=== PATIENT | male | born 1940 | race Caucasian/White ===

== ENCOUNTER 2019-03-01 10:47 | Inpatient (IN) | payer OTHER ==
[~2019-03-01] VITALS: Ht 185.4 cm; Wt 99.8 kg
[2019-03-01] MEDS ORDERED: SODIUM CHLORIDE 0.9% 500 ML IV ONE (11:15)
[2019-03-01 11:46] LABS: Basophils # (auto) 0 uL; Basophils % (auto) 0.5 % (0.0-2.0); Eosinophils # (auto) 0.1 uL; Eosinophils % (auto) 1.8 % (0.0-7.0); Hematocrit 37.2 % (41.0-53.0); Lymphocytes % (auto) 16.8 % (10.0-50.0); Mean Corpuscular Hemoglobin 28.5 pg (28.0-32.0); Mean Corpuscular Hgb Conc. 32.3 g/dL (32.0-36.0); Mean Corpuscular Volume 88.2 fL (80.0-100.0); Monocytes # (auto) 0.4 uL; Monocytes % (auto) 6.2 % (0.0-12.0); Neutrophils # (auto) 4.5 uL; Neutrophils % (auto) 74.7 % (37.0-80.0); Platelet Count (auto) 318 10^3/uL (140-450); Red Blood Cells 4.22 10^6/uL (4.5-5.90); Red Cell Distribution Width 14.3 % (11.8-14.3)
[2019-03-01 12:12] LABS: Albumin 2.9 g/dL (3.4-5.0); BUN/Creatinine Ratio 17.2; Bilirubin, Total 0.5 mg/dL (0.2-1.0); Calcium 8.5 mg/dL (8.5-10.1); Magnesium 2.2 mg/dL (1.6-2.6); Potassium 4.4 mmol/L (3.5-5.1); Total Protein 7.2 g/dL (6.4-8.2)
[2019-03-01] MEDS ORDERED: SODIUM CHLORIDE 0.9% 1,000 ML IV SCH (14:15)
[2019-03-01 17:00] VITALS: BP 158/95
--- NOTE | 2019-03-01 17:50 | NUR ---
CAME ON WC FROM ER, ALERT AND ORIENTED X4, NOT IN DISTRESS, CLEAR LS IN BILATERAL LUNG LOBES, SR R=96 ON TELE MONITOR, DENIED CH PAIN DIZZINESS OR DISCOMFORT, ABDOMEN SOFT WITH ACTIVE BS, LAST BM=02/28/19 REPORTED, SKIN INTACT WARM TO TOUCH, RESTING ON BED, VS T=97.7 RR=18 SAT=97% P=77 PN=186/84, HEAD OF BED ELEVATED, BED ON LOWER POSITION, RAILS UP X2, CALL LIGHT ON REACH, PENDING CARDIAC CONSULT AND ECHO RESULT, WILL CONTINUE MONITORING.
--- NOTE | 2019-03-01 19:00 | NUR ---
DR. SOLIS CONSULTED THE PATIENT CARDIAC CLEARED REPORTED.
[2019-03-01 20:01] VITALS: BP 158/95
--- NOTE | 2019-03-01 20:28 | NUR ---
PENDING D/C HOME TODAY, REPORT WAS GIVEN TO THE AUTOMOTIVE PARTS COUNTER PERSON RN.
--- NOTE | 2019-03-01 20:40 | NUR ---
Discharge instructions given as ordered. Encourage to follow up with PMD as instructed. All questions and concerns addressed. Patient verbalized understanding. Medication reconciliation form completed and copy given to patient. Home medications held in Pharmacy returned to patient, and needed vaccines given. IV removed with catheter intact, pressure dressing applied. Telemetry unit returned to ICU by day shift RN. Patient taken to vehicle via wheelchair with all personal belongings, accompanied by staff and family member. No distress noted at time of departure.
== END 2019-03-01 20:40 | disposition home or self-care (01) | DRG 682 ==
LOC: ER 10:56 → TELE 10:57 → TELE-WESTW 15:50
PROVIDERS: ADMIT Internal Medicine; ATTEND Internal Medicine
DX: N18.3 Chronic kidney disease, stage 3 (moderate) (principal); I21.A1 Myocardial infarction type 2; H55.00 Unspecified nystagmus; D63.1 Anemia in chronic kidney disease; J43.9 Emphysema, unspecified; N20.0 Calculus of kidney; R91.1 Solitary pulmonary nodule; F17.210 Nicotine dependence, cigarettes, uncomplicated; Z79.899 Other long term (current) drug therapy
CPT/HCPCS: 36415; 70450; 76775; 80053; 83735; 84484; 85025; 93005; 93306; 94761; 96360; G0378

== ENCOUNTER 2019-05-26 06:58 | Emergency (ER) | payer OTHER ==
[~2019-05-26] VITALS: Ht 185.4 cm; Wt 99.8 kg
[2019-05-26] MEDS ORDERED: SODIUM CHLORIDE 0.9% 1,000 ML IV ONE (07:47)
[2019-05-26 08:09] LABS: Urine Bacteria FEW /hpf (None Seen); Urine Blood 3+ /uL (Negative); Urine Mucus FEW (None Seen); Urine Specific Gravity 1.014 (1.001-1.035); Urine WBC 245 /hpf (0 - 3); Urine WBC Clumps PRESENT /hpf (None Seen)
[2019-05-26 08:20] LABS: Basophils # (auto) 0 uL; Basophils % (auto) 0.5 % (0.0-2.0); Eosinophils # (auto) 0.1 uL; Eosinophils % (auto) 1.1 % (0.0-7.0); Hematocrit 39.2 % (41.0-53.0); Lymphocytes # (auto) 1.1 uL; Lymphocytes % (auto) 13.5 % (10.0-50.0); Mean Corpuscular Hemoglobin 27.6 pg (28.0-32.0); Mean Corpuscular Hgb Conc. 33.1 g/dL (32.0-36.0); Mean Corpuscular Volume 83.5 fL (80.0-100.0); Monocytes # (auto) 0.6 uL; Monocytes % (auto) 7.5 % (0.0-12.0); Neutrophils # (auto) 6.1 uL; Neutrophils % (auto) 77.4 % (37.0-80.0); Nucleated Red Blood Cells % 0.2 %; Platelet Count (auto) 319 10^3/uL (140-450); Red Blood Cells 4.69 10^6/uL (4.5-5.90); Red Cell Distribution Width 15.1 % (11.8-14.3); White Blood Cell 7.9 10^3/uL (4.4-10.8)
[2019-05-26 08:44] LABS: BUN/Creatinine Ratio 15.7; Calcium 8.9 mg/dL (8.5-10.1); Magnesium 2.3 mg/dL (1.6-2.6); Potassium 4.7 mmol/L (3.5-5.1)
[2019-05-26 09:42] VITALS: BP 141/66
[2019-05-26] MEDS ORDERED: cefTRIAXone 1GM/50ML D5W 50 ML IV ONE (10:00)
[2019-05-26] MEDS ORDERED: cefTRIAXone SOD 1,000 MG VL IM ONE (10:15)
== END 2019-05-26 11:00 | disposition home or self-care (01) ==
LOC: ER 06:58
DX: N39.0 Urinary tract infection, site not specified (principal); I12.9 Hypertensive chronic kidney disease with stage 1 through stage 4 chronic kidney disease, or unspecified chronic kidney disease; N18.3 Chronic kidney disease, stage 3 (moderate)
CPT/HCPCS: 36415; 51702; 80048; 81001; 83735; 85025; 96372; 99284; J0696; J7030

== ENCOUNTER 2019-07-13 22:51 | Emergency (ER) | payer OTHER ==
[~2019-07-13] VITALS: Ht 185.4 cm; Wt 103.9 kg
[2019-07-14 00:08] LABS: Basophils # (auto) 0.1 10 ^3/uL (0-0.2); Basophils % (auto) 0.8 % (0.0-2.0); Eosinophils # (auto) 0.3 10 ^3/uL (0-0.8); Eosinophils % (auto) 4.1 % (0.0-7.0); Hematocrit 35.4 % (41.0-53.0); Hemoglobin 12.1 g/dL (13.5-17.5); Lymphocytes # (auto) 1.6 10 ^3/uL (0.4-5.4); Lymphocytes % (auto) 22.7 % (10.0-50.0); Mean Corpuscular Hemoglobin 27.9 pg (28.0-32.0); Mean Corpuscular Volume 82.1 fL (80.0-100.0); Monocytes # (auto) 0.6 10 ^3/uL (0-1.3); Monocytes % (auto) 8.4 % (0.0-12.0); Neutrophils # (auto) 4.5 10 ^3/uL (1.6-8.6); Platelet Count (auto) 308 10^3/uL (140-450); Red Blood Cells 4.32 10^6/uL (4.5-5.90); Red Cell Distribution Width 15.4 % (11.8-14.3)
[2019-07-14 00:26] LABS: Albumin 3.1 g/dL (3.4-5.0); BUN/Creatinine Ratio 16.9; Calcium 8.6 mg/dL (8.5-10.1); Potassium 4.4 mmol/L (3.5-5.1)
[2019-07-14 00:29] LABS: Bilirubin, Total 0.5 mg/dL (0.2-1.0); Total Protein 7.7 g/dL (6.4-8.2)
[2019-07-14 00:30] VITALS: BP 120/79
== END 2019-07-14 02:01 | disposition home or self-care (01) ==
LOC: ER 22:51
DX: R33.8 Other retention of urine (principal); F17.210 Nicotine dependence, cigarettes, uncomplicated; Z98.890 Other specified postprocedural states
CPT/HCPCS: 36415; 51702; 80053; 85025

== ENCOUNTER 2019-12-27 14:26 | Inpatient (IN) | payer OTHER ==
[~2019-12-27] VITALS: Ht 185.4 cm; Wt 95.3 kg
[2019-12-27 15:52] LABS: Basophils # (auto) 0.1 10 ^3/uL (0-0.2); Basophils % (auto) 0.9 % (0.0-2.0); Lymphocytes # (auto) 1.3 10 ^3/uL (0.4-5.4); Monocytes # (auto) 0.6 10 ^3/uL (0-1.3)
[2019-12-27 15:54] LABS: Eosinophils # (auto) 0.3 10 ^3/uL (0-0.8); Eosinophils % (auto) 4.3 % (0.0-7.0); Hematocrit 21.2 % (41.0-53.0); Lymphocytes % (auto) 20.3 % (10.0-50.0); Mean Corpuscular Hgb Conc. 32.1 g/dL (32.0-36.0); Mean Corpuscular Volume 71.7 fL (80.0-100.0); Monocytes % (auto) 9.6 % (0.0-12.0); Neutrophils # (auto) 4.2 10 ^3/uL (1.6-8.6); Neutrophils % (auto) 64.9 % (37.0-80.0); Platelet Count (auto) 588 10^3/uL (140-450); Red Blood Cells 2.96 10^6/uL (4.5-5.90); Red Cell Distribution Width 19.1 % (11.8-14.3); White Blood Cell 6.4 10^3/uL (4.4-10.8)
[2019-12-27 16:02] LABS: Albumin 2.5 g/dL (3.4-5.0); Calcium 8.7 mg/dL (8.5-10.1); Potassium 3.9 mmol/L (3.5-5.1)
[2019-12-27 16:05] LABS: BUN/Creatinine Ratio 13.6; Bilirubin, Total 0.5 mg/dL (0.2-1.0); Total Protein 7.6 g/dL (6.4-8.2)
[2019-12-27 16:25] LABS: Hemoglobin 6.8 g/dL (13.5-17.5)
[2019-12-27] MEDS: SODIUM CHLORIDE 0.9% 1,000 ML IV SCH (17:06)
[2019-12-27] MEDS ORDERED: HYDROcodone-ACET 5/325MG TAB PO PRN (17:15)
[2019-12-27] MEDS ORDERED: MORPHINE SULF INJ 2 MG/ML SYRINGE 1ML IV PRN ×2 (17:15)
[2019-12-27] MEDS ORDERED: DOCUSATE SOD 100 MG CAP PO PRN (17:15)
[2019-12-27] MEDS ORDERED: ALUM & MAG HYDROX-SIMETH LIQ(MAALOX) 30 ML PO PRN (17:15)
[2019-12-27] MEDS ORDERED: ACETAMINOPHEN 325 MG TAB PO PRN (17:15)
[2019-12-27] MEDS ORDERED: ONDANSETRON HCL 4 MG/2 ML VIAL IV PRN (17:15)
[2019-12-27] MEDS ORDERED: LORazepam 0.5 MG TAB PO PRN (17:15)
[2019-12-27] MEDS ORDERED: NITROGLYCERIN 0.4 MG SL TAB SL PRN (17:15)
[2019-12-27 18:53] LABS: Alcohol, Urine < 3.0 mg/dL (0-10); Amphetamine Screen, Urine NEGATIVE (NEGATIVE); Barbiturate Scree,Urine NEGATIVE (NEGATIVE); Benzodiazephine Screen, Urine NEGATIVE (NEGATIVE); Cannabinoid Screen, Urine NEGATIVE (NEGATIVE); Cocaine Screen, Urine NEGATIVE (NEGATIVE); Opiate Scree,Urine NEGATIVE (NEGATIVE); Phencyclidine Screen, Urine NEGATIVE (NEGATIVE)
[2019-12-27 19:22] LABS: Urine Bacteria NONE SEEN /hpf (None Seen); Urine Blood Negative /uL (Negative); Urine Hyaline Cast FEW /lpf (0 - 2); Urine Mucus FEW (None Seen); Urine Specific Gravity 1.025 (1.001-1.035); Urine WBC 12 /hpf (0 - 3)
[2019-12-27] MEDS ORDERED: SODIUM FERR GLUC 62.5MG/5ML 125 MG in SODIUM CHL 0.9% 100 ML IV ONE (20:30)
[2019-12-27 20:42] LABS: % Iron Saturation 8.9 % (20-55)
[2019-12-27] MEDS ORDERED: ATORVASTATIN 20 MG TAB PO SCH (22:00)
[2019-12-27] MEDS: AZTREONAM 1GM INJ 1 GM in D5W 5% 50 ML IV SCH (23:10)
[2019-12-28] VITALS (15 sets, daily range): BP systolic 108–150; BP diastolic 63–89
[2019-12-28] MEDS: AZTREONAM 1GM INJ 1 GM in D5W 5% 50 ML IV SCH ×2 (05:47→14:00)
[2019-12-28 08:13] LABS: Eosinophils # (auto) 0.3 10 ^3/uL (0-0.8); Monocytes # (auto) 0.6 10 ^3/uL (0-1.3); White Blood Cell 5.3 10^3/uL (4.4-10.8)
[2019-12-28 08:14] LABS: Basophils # (auto) 0 10 ^3/uL (0-0.2); Basophils % (auto) 0.8 % (0.0-2.0); Eosinophils % (auto) 5.2 % (0.0-7.0); Hematocrit 22.4 % (41.0-53.0); Hemoglobin 7.2 g/dL (13.5-17.5); Lymphocytes % (auto) 18.2 % (10.0-50.0); Mean Corpuscular Hemoglobin 23.7 pg (28.0-32.0); Monocytes % (auto) 11.8 % (0.0-12.0); Neutrophils # (auto) 3.4 10 ^3/uL (1.6-8.6); Platelet Count (auto) 467 10^3/uL (140-450); Red Blood Cells 3.02 10^6/uL (4.5-5.90)
[2019-12-28 08:16] LABS: Red Cell Distribution Width 20.3 % (11.8-14.3)
[2019-12-28 08:29] LABS: Calcium 8.4 mg/dL (8.5-10.1); INR 1.23 (0.9-1.15); Partial Thromboplastin Time 31.9 sec (23.0-31.2)
[2019-12-28 08:35] LABS: Albumin 2.3 g/dL (3.4-5.0); BUN/Creatinine Ratio 14.3; Bilirubin, Total 0.8 mg/dL (0.2-1.0); Magnesium 2.3 mg/dL (1.6-2.6); Total Protein 6.9 g/dL (6.4-8.2)
[2019-12-28] MEDS: SODIUM CHLORIDE 0.9% 1,000 ML IV SCH (09:55)
[2019-12-28] MEDS ORDERED: FINASTERIDE 5 MG TAB PO SCH (10:00)
--- NOTE | 2019-12-28 10:40 | NUR ---
PATIENT ARRIVED TO PACU VIA WHEELCHAIR, AMBULATED TO [facility] WITHOUT INCIDENT. BEDSIDE REPORT RECEIVED FROM ER STONEWORKING BELT SANDER. PATIENT IS ALERT AND APPROPRIATE. PATIENT ORIENTATED TO SURROUNDINGS, TELEMETRY BEING MONITORED AT THE BEDSIDE. WILL CONTINUE TO MONITOR.
[2019-12-28] MEDS ORDERED: IRON SUCROSE COMPLEX 200 MG in SODIUM CHL 0.9% 100 ML IV SCH (12:00)
--- NOTE | 2019-12-28 12:39 | NUR ---
TWO #2 IV'S PLACED AT THIS TIME, ONE LEFT HAND AND ONE IN THE RIGHT HAND IN PREPARATION FOR STRESS TEST.
--- NOTE | 2019-12-28 12:43 | NUR ---
DR. BACH AT THE BEDSIDE IN PACU, NEW ORDERS RECEIVED. TRANSFUSION TO BE COMPLETED AFTER STRESS TEST.
--- NOTE | 2019-12-28 13:05 | NUR ---
PATIENT TO STRESS LAB
--- NOTE | 2019-12-28 13:35 | NUR ---
PATIENT RETURNED FROM STRESS LAB
[2019-12-28] MEDS ORDERED: ADENOSINE 80 MG in GIVE UN-DILUTED 0 ML IV STA (13:54)
--- NOTE | 2019-12-28 14:16 | NUR ---
STRESS TEST STAFF TO PACU, PATIENT RETURNED TO STRESS LAB.
[2019-12-28] MEDS ORDERED: CIPR-173 PO (14:46)
--- NOTE | 2019-12-28 14:49 | NUR ---
PATIENT RETURNED FROM STRESS LAB, NO INCIDENTS TO REPORT.
[2019-12-28] MEDS ORDERED: HYDR-4833 PO (15:42)
--- NOTE | 2019-12-28 15:50 | NUR ---
DR. BACH UPDATED WITH BLOOD TRANSFUSION STATUS, S/P ECHO, SHIPPING ASSISTANT HAS NOT SEEN PATIENT AT THIS TIME AND DR. BACH IS AWARE AND WILL COMPLETE THIS SOON POSSIBLE, PATIENT TO BE DISCHARGED ORDERED. PATIENT IS AWARE AND WANTS TO GO HOME TONIGHT WELL.
--- NOTE | 2019-12-28 16:02 | NUR ---
REPORT PROVIDED IN DETAIL TO ELSA HARRISON ALL CONCERNS AND QUESTIONS ADDRESSED.
--- NOTE | 2019-12-28 16:30 | NUR ---
Telemetry admit from PACU RANDI GALARZA admitted to Telemetry unit after SBAR received. Patient oriented to ELSA NICHOLSON, primary RN, unit, room, bed, and unit policies regarding patient care and visiting hours. Patient now on continuous telemetry monitoring, tele box # 47 and telemetry reading on arrival to unit is [hr 80]. Patient is alert and awake with even and unlabored respirations. no S/S of distress/sob or distress. bed is in lowest locked position, side rails up x2 and call light is within reach. Last unit of PRBC's currently running. unit started at 1618 by CONTENT ADMINISTRATOR. Patient tolerating well, no S/S of transfusion reaction present at this time. Pt educate on S/S and informed to call immediately if these S/S become present. Pt verbalized understanding. All questions and concerns addressed. Will continue to monitor q1h and PRN.
--- NOTE | 2019-12-28 16:36 | NUR ---
PATIENT TRANSPORTED TO ROOM 220A AND AMBULATED TO THE BED FROM THE [facility] WITHOUT INCIDENT. BAG AND SHOES WITH PATIENT ELSA RN TO THE BEDSIDE. REPORT UPDATED. BED LOW, CALL ROMAN WITHIN REACH.
--- NOTE | 2019-12-28 17:30 | NUR ---
SPOKE WITH DR. BACH SPOKE WITH DR. BACH OVER THE PHONE. OER DR. HASTINGS NEEDS TO HAVE KIDNEY U/ DONE BEFORE D/C AND TO CALL HIM WITH RESULTS PRIOR TO D/C. D/C MAY BE HELD DEPENDING ON RESULTS OF U/S. WILL CONTINUE TO MONITOR Q1H AND PRN.
[2019-12-28] MEDS ORDERED: TAMSULOSIN HYDROCHLORIDE 0.4 MG CAP PO SCH (18:00)
--- NOTE | 2019-12-28 19:12 | NUR ---
BLOOD TRANSFUSION ENDED BLOOD TRANSFUSION COMPLETE AND DONE INFUSING. PT TOLERATED WELL. DO S/S OF SOB/DISTRESS OR PAIN. PT DENIES ANY TRANSFUSION RELATED S/S. VSS. WILL CONTINUE TO MONITOR
--- NOTE | 2019-12-28 19:27 | NUR ---
PT WANTING TO LEAVE PT EXPRESSING THAT HE DOESN'T WANT TO WAIT HERE ANYMORE AND HE IS READY TO GO HOME. ATTEMPTED TO CALL DR. BACH. SPOKE WITH DR. AKHTAR, WHO IS COVERING FOR DR. BACH. UPDATE ON PT STATUS AND PT NOT WANTING TO WAIT FOR TEST RESULTS TO COME BACK. PER DR. SCHNEIDER TO LET PT LEAVE AMA AND HE WILL INFORM DR. BACH KNOW. WILL INFORM NOC CHRISTY.
--- NOTE | 2019-12-28 19:40 | NUR ---
Closing Note Patient awake and alert. Patient requesting to go AMA as he is not wanting to wait for u/s results. No S/S of distress/SOB. AMA endorsed. Care endorsed to Myah GAGE RN. Addendum: 12/28/19 at 1958 by ELSA NICHOLSON RN pt AMRickey now
--- NOTE | 2019-12-28 19:57 | NUR ---
AMA Note RANDI GALARZA states they want to leave the hospital Against Medical Advice (AMA). Patient encouraged to stay for further treatment/stabilization. VICKY MCCARTNEY MD notified of patient's wishes. Tele monitor removed and returned to telemetry techs. Patient advised of the risks and benefits of leaving AMA. Patient verbalized understanding. Patient encouraged to return to the ER if symptoms do not improve or worsen. pt walked out with walker with slow steady gait. no S/S of distress/sob or pain at time of AMA.
--- NOTE | 2019-12-29 09:15 | NUR ---
ss consult Per ss consult home health and front wheel walker. Patient left AMA prior to being assessed. Patient informed me via telephone that he has a fww and he does not need home health. Patient refused ss consult. Addendum: 12/30/19 at 1123 by Luma Bishop Amended: Links added.
== END 2019-12-28 19:50 | disposition left against medical advice (07) | DRG 682 ==
LOC: ER 14:26 → TELE 14:27 → TELE-CENTR 12-28 16:27
PROVIDERS: ADMIT Hospitalist; ATTEND Hospitalist
PROC: 30233N1 Transfusion of Nonautologous Red Blood Cells into Peripheral Vein, Percutaneous Approach (ICD-10-PCS; principal; 2019-12-28)
DX: N18.3 Chronic kidney disease, stage 3 (moderate) (principal); E43 Unspecified severe protein-calorie malnutrition; E87.1 Hypo-osmolality and hyponatremia; D63.8 Anemia in other chronic diseases classified elsewhere; N13.6 Pyonephrosis; N17.9 Acute kidney failure, unspecified; N28.89 Other specified disorders of kidney and ureter; K80.20 Calculus of gallbladder without cholecystitis without obstruction; N20.9 Urinary calculus, unspecified; Z53.29 Procedure and treatment not carried out because of patient's decision for other reasons; Z88.0 Allergy status to penicillin; E78.5 Hyperlipidemia, unspecified; G89.29 Other chronic pain; I49.3 Ventricular premature depolarization; J44.9 Chronic obstructive pulmonary disease, unspecified; N28.1 Cyst of kidney, acquired; N40.0 Benign prostatic hyperplasia without lower urinary tract symptoms; Z80.9 Family history of malignant neoplasm, unspecified; Z82.49 Family history of ischemic heart disease and other diseases of the circulatory system; Z83.3 Family history of diabetes mellitus; Z85.51 Personal history of malignant neoplasm of bladder; Z87.442 Personal history of urinary calculi; Z87.891 Personal history of nicotine dependence
CPT/HCPCS: 36415; 74176; 76775; 78452; 80053; 80061; 80307; 81001; 82150; 83036; 83540; 83550; 83690; 83735; 84100; 84484; 85025; 85610; 85730; 86850; 86900; 86901; 86920; 87040; 87086; 93005; 93017; 93306; G0378; J0153; J1756; J7060

== ENCOUNTER 2020-01-18 08:17 | Inpatient (IN) | payer OTHER ==
[~2020-01-18] VITALS: Ht 185.4 cm; Wt 98.5 kg
[~2020-01-18 08:17] MED LIST: CIPR-173 PO; HYDR-4833 PO
[2020-01-18 09:08] LABS: Basophils # (auto) 0 10 ^3/uL (0-0.2); Basophils % (auto) 0.7 % (0.0-2.0); Eosinophils # (auto) 0.1 10 ^3/uL (0-0.8); Eosinophils % (auto) 2.4 % (0.0-7.0); Hemoglobin 7.8 g/dL (13.5-17.5); Lymphocytes # (auto) 0.9 10 ^3/uL (0.4-5.4); Lymphocytes % (auto) 13.9 % (10.0-50.0); Mean Corpuscular Hemoglobin 23.5 pg (28.0-32.0); Mean Corpuscular Hgb Conc. 31.4 g/dL (32.0-36.0); Mean Corpuscular Volume 74.9 fL (80.0-100.0); Monocytes # (auto) 0.7 10 ^3/uL (0-1.3); Monocytes % (auto) 11.3 % (0.0-12.0); Neutrophils # (auto) 4.5 10 ^3/uL (1.6-8.6); Neutrophils % (auto) 71.7 % (37.0-80.0); Platelet Count (auto) 596 10^3/uL (140-450); Red Blood Cells 3.33 10^6/uL (4.5-5.90); Red Cell Distribution Width 22.4 % (11.8-14.3); White Blood Cell 6.2 10^3/uL (4.4-10.8)
[2020-01-18] MEDS ORDERED: DexAMETHasone INJECTION 10 MG in D5W 5% 50 ML IV ONE (09:15)
[2020-01-18] MEDS ORDERED: IPRATROPIUM BROM 0.5 MG/2.5ML INH SOL NEB ONE (09:15)
[2020-01-18] MEDS ORDERED: ALBUTEROL SULF 2.5 MG/0.5ML(0.5%) NEB SOLN NEB ONE (09:15)
[2020-01-18 09:27] LABS: Albumin 2.7 g/dL (3.4-5.0); Calcium 8.7 mg/dL (8.5-10.1); Potassium 4.5 mmol/L (3.5-5.1)
[2020-01-18 09:33] LABS: BUN/Creatinine Ratio 13.3; Bilirubin, Total 0.5 mg/dL (0.2-1.0); Magnesium 2.5 mg/dL (1.6-2.6); Total Protein 7.6 g/dL (6.4-8.2)
[2020-01-18] MEDS: DexAMETHasone INJECTION 10 MG in D5W 5% 50 ML IV SCH (11:54)
[2020-01-18 13:00] VITALS: BP 135/70
[2020-01-18] MEDS ORDERED: ACETAMINOPHEN 325 MG TAB PO PRN (14:00)
[2020-01-18] MEDS ORDERED: MORPHINE SULF INJ 2 MG/ML SYRINGE 1ML IV PRN ×2 (14:00)
[2020-01-18] MEDS ORDERED: NITROGLYCERIN 0.4 MG SL TAB SL PRN (14:00)
[2020-01-18] MEDS ORDERED: ONDANSETRON HCL 4 MG/2 ML VIAL IV PRN (14:00)
[2020-01-18] MEDS: SOD CHL 0.45% 1,000 ML IV SCH (14:54)
--- NOTE | 2020-01-18 15:54 | NUR ---
Telemetry admit from ER RANDI GALARZA admitted to Telemetry unit after SBAR received. Patient oriented to Caitlin blair RN, unit, room, bed, and unit policies regarding patient care and visiting hours. Patient now on continuous telemetry monitoring, tele box #25 and telemetry reading on arrival to unit is ST 107 bpm. Patient placed on bedside oxygen 2 LPM NC and weighed by bed scale. Patient has Escamilla catheter in place. Catheter is patent draining into a leg bag. Patient demonstrated proper technique for draining catheter bag. patient requesting to continue emptying catheter bag. Instructed patient on POC, fall precautions and to call for assistance as needed. patient verbalized understanding. Fall precautions in place with call light within reach.
--- NOTE | 2020-01-18 16:00 | NUR ---
Patient transferred self from wheelchair to bed Patient ambulated with a steady gait. No distress noted.
[2020-01-18] MEDS ORDERED: DOCU-80 PO (16:35)
[2020-01-18] MEDS ORDERED: CRAN450T4 PO (16:35)
[2020-01-18] MEDS ORDERED: POM (16:35)
[2020-01-18] MEDS ORDERED: MISC450C OR (16:35)
--- NOTE | 2020-01-18 16:45 | NUR ---
MRSA swab collected & sent to lab per protocol.
[2020-01-18 17:00] VITALS: BP 135/70
--- NOTE | 2020-01-18 18:45 | NUR ---
Closing note Patient resting in bed with even and unlabored respirations, no distress noted. Fall precautions in place with call light within reach.
--- NOTE | 2020-01-18 19:15 | NUR ---
Care endorsed to HCRISTY Duran.
--- NOTE | 2020-01-18 19:45 | NUR ---
Opening Shift Note Assumed care of patient, awake and alert. No S/S of distress/SOB or pain. Patient on 2L NC. Instructed on POC and to call for assist PRN, will continue to monitor for changes Q1hr and PRN.
[2020-01-18 20:00] VITALS: BP 124/69
[2020-01-18 21:00] VITALS: BP 124/69
[2020-01-18] MEDS ORDERED: TEMAZEPAM 15 MG CAP PO ONE (22:45)
[2020-01-19] MEDS: SOD CHL 0.45% 1,000 ML IV SCH (04:12)
[2020-01-19 05:00] VITALS: BP 121/66
[2020-01-19 07:03] LABS: Basophils # (auto) 0 10 ^3/uL (0-0.2); Basophils % (auto) 0.1 % (0.0-2.0); Eosinophils # (auto) 0 10 ^3/uL (0-0.8); Hemoglobin 7.2 g/dL (13.5-17.5); Monocytes # (auto) 0.5 10 ^3/uL (0-1.3); Neutrophils # (auto) 8.2 10 ^3/uL (1.6-8.6); White Blood Cell 9.3 10^3/uL (4.4-10.8)
[2020-01-19 07:05] LABS: Hematocrit 22.5 % (41.0-53.0); Lymphocytes # (auto) 0.6 10 ^3/uL (0.4-5.4); Lymphocytes % (auto) 6.2 % (10.0-50.0); Mean Corpuscular Hemoglobin 23.7 pg (28.0-32.0); Mean Corpuscular Hgb Conc. 32.2 g/dL (32.0-36.0); Mean Corpuscular Volume 73.7 fL (80.0-100.0); Monocytes % (auto) 5.3 % (0.0-12.0); Neutrophils % (auto) 88.4 % (37.0-80.0); Platelet Count (auto) 518 10^3/uL (140-450); Red Blood Cells 3.06 10^6/uL (4.5-5.90); Red Cell Distribution Width 22.2 % (11.8-14.3)
[2020-01-19 07:15] LABS: Albumin 2.4 g/dL (3.4-5.0); Calcium 8.6 mg/dL (8.5-10.1); Magnesium 2.9 mg/dL (1.6-2.6); Potassium 4.8 mmol/L (3.5-5.1)
[2020-01-19 07:34] LABS: BUN/Creatinine Ratio 18.4; Bilirubin, Total 0.4 mg/dL (0.2-1.0)
[2020-01-19 07:37] LABS: INR 1.23 (0.9-1.15); Partial Thromboplastin Time 29.9 sec (23.0-31.2)
[2020-01-19 08:42] VITALS: BP 123/68
--- NOTE | 2020-01-19 08:54 | NUR ---
Opening Shift Note Assumed care of patient, A/Ox4. Patient sitting in high-collado's position upon entering the room. Patient's IV dressing was saturated with blood and a new dressing was applied as well as hooked up and restarted at 70 ml/hr. Patient is able to ambulate to the restroom to empty leg bag independently and does so when needed. No S/S of distress/SOB or pain. Instructed on POC for the day and to call for assist PRN, will continue to monitor for changes Q1hr and PRN.
--- NOTE | 2020-01-19 10:30 | NUR ---
Dr. Hoffman at bedside Dr Hoffman at bedside assessing patient's feelings of SOB and oxygen saturations. Patient instructed to walk the unit then reassess saturations. Patient ambulated around the nurses station returning to his bed with saturations measuring at 97%. Patient was instructed by the physician to maintain follow up appointments and was told he would be discharged today. Patient verbalized understanding. Will continue to monitor the patient and carry out discharge orders.
[2020-01-19] MEDS: DexAMETHasone INJECTION 10 MG in D5W 5% 50 ML IV SCH (10:48)
--- NOTE | 2020-01-19 12:05 | NUR ---
Patient discharged off floor Patient was given verbal and written education on diagnosis, prevention, diet and follow up appointment information. Patient verbalized understanding. IV was removed and a bandage was applied with coban. No signs of trauma or bleeding at the IV site. Patient was wheeled off the unit accompanied by staff and taken to the front of the hospital. Patient was received by his girlfriend. No signs of respiratory distress or pain was noted at discharge.
[2020-01-19 12:11] VITALS: BP 120/70
--- NOTE | 2020-01-19 12:45 | NUR ---
Patient was discharge prior to assess. Regarding social service consult for home health safety evaluation. Faxed clinical information to [facility]. Per Kristine with [facility] patient has been accepted and service to start within 24-48hrs upon d/c day.
== END 2020-01-19 12:11 | disposition home health service (06) | DRG 725 ==
LOC: ER 08:17 → TELE 08:18 → TELE-CENTR 15:54
PROVIDERS: ADMIT Internal Medicine; ATTEND Internal Medicine
DX: N40.1 Benign prostatic hyperplasia with lower urinary tract symptoms (principal); N17.0 Acute kidney failure with tubular necrosis; N13.30 Unspecified hydronephrosis; E87.1 Hypo-osmolality and hyponatremia; R33.8 Other retention of urine; N28.89 Other specified disorders of kidney and ureter; D64.9 Anemia, unspecified; N18.9 Chronic kidney disease, unspecified; K57.30 Diverticulosis of large intestine without perforation or abscess without bleeding; K80.20 Calculus of gallbladder without cholecystitis without obstruction; J44.9 Chronic obstructive pulmonary disease, unspecified; Z88.0 Allergy status to penicillin; Z87.891 Personal history of nicotine dependence; Z90.89 Acquired absence of other organs; Z83.3 Family history of diabetes mellitus; Z82.49 Family history of ischemic heart disease and other diseases of the circulatory system; Z80.9 Family history of malignant neoplasm, unspecified; Z85.51 Personal history of malignant neoplasm of bladder
CPT/HCPCS: 36415; 71045; 74176; 80053; 82150; 83690; 83735; 85025; 85610; 85730; 87081; 93005; 94640; G0378; J1100; J7060

== ENCOUNTER 2020-03-10 12:01 | Emergency (ER) | payer OTHER ==
[~2020-03-10] VITALS: Ht 185.4 cm; Wt 86.2 kg
[~2020-03-10 12:01] MED LIST changes: +CRAN450T4 PO; +DOCU-80 PO; +MISC450C OR; +POM
[2020-03-10 12:38] VITALS: BP 129/69
[2020-03-10 13:52] LABS: Urine Bacteria NONE SEEN /hpf (None Seen); Urine Blood 1+ /uL (Negative); Urine Specific Gravity 1.016 (1.001-1.035); Urine WBC 12 /hpf (0 - 3)
== END 2020-03-10 14:54 | disposition home or self-care (01) ==
LOC: ER 12:01
DX: N39.0 Urinary tract infection, site not specified (principal); N40.0 Benign prostatic hyperplasia without lower urinary tract symptoms; J44.9 Chronic obstructive pulmonary disease, unspecified; E78.5 Hyperlipidemia, unspecified; I10 Essential (primary) hypertension; Z46.6 Encounter for fitting and adjustment of urinary device; Z88.0 Allergy status to penicillin; Z88.8 Allergy status to other drugs, medicaments and biological substances; Z79.899 Other long term (current) drug therapy; Z98.890 Other specified postprocedural states; Z90.89 Acquired absence of other organs; Z87.891 Personal history of nicotine dependence
CPT/HCPCS: 51702; 81001

== ENCOUNTER 2020-03-29 06:36 | Emergency (ER) | payer OTHER ==
[~2020-03-29] VITALS: Ht 185.4 cm; Wt 87.5 kg
[2020-03-29 07:55] LABS: Hematocrit 24.5 % (41.0-53.0); Hemoglobin 7.6 g/dL (13.5-17.5); Lymphocytes # (auto) 0.9 10 ^3/uL (0.4-5.4); Monocytes # (auto) 0.5 10 ^3/uL (0-1.3); Red Blood Cells 3.38 10^6/uL (4.5-5.90); White Blood Cell 5.3 10^3/uL (4.4-10.8)
[2020-03-29 07:57] LABS: Basophils # (auto) 0 10 ^3/uL (0-0.2); Basophils % (auto) 0.9 % (0.0-2.0); Eosinophils # (auto) 0.1 10 ^3/uL (0-0.8); Eosinophils % (auto) 2.6 % (0.0-7.0); Lymphocytes % (auto) 16.3 % (10.0-50.0); Mean Corpuscular Hemoglobin 22.4 pg (28.0-32.0); Mean Corpuscular Volume 72.4 fL (80.0-100.0); Monocytes % (auto) 9.7 % (0.0-12.0); Neutrophils # (auto) 3.8 10 ^3/uL (1.6-8.6); Neutrophils % (auto) 70.5 % (37.0-80.0); Platelet Count (auto) 473 10^3/uL (140-450)
[2020-03-29 08:04] LABS: Urine Bacteria None Seen /hpf (None Seen); Urine WBC None Seen /hpf (0 - 3)
[2020-03-29 08:16] LABS: Albumin 2.9 g/dL (3.4-5.0); Potassium 3.7 mmol/L (3.5-5.1)
[2020-03-29 08:19] LABS: BUN/Creatinine Ratio 17.7; Bilirubin, Total 0.5 mg/dL (0.2-1.0); Total Protein 7.3 g/dL (6.4-8.2)
[2020-03-29 08:54] LABS: Urine Specific Gravity 1.016 (1.001-1.035)
[2020-03-29 08:55] LABS: Urine Blood 2+ /uL (Negative)
[2020-03-29 09:39] VITALS: BP 113/60
== END 2020-03-29 09:49 | disposition home or self-care (01) ==
LOC: ER 06:36
DX: R33.9 Retention of urine, unspecified (principal); D64.9 Anemia, unspecified; J44.9 Chronic obstructive pulmonary disease, unspecified; E78.00 Pure hypercholesterolemia, unspecified; E78.5 Hyperlipidemia, unspecified; I10 Essential (primary) hypertension; Z85.528 Personal history of other malignant neoplasm of kidney; Z87.891 Personal history of nicotine dependence; Z79.899 Other long term (current) drug therapy; Z88.0 Allergy status to penicillin; Z88.8 Allergy status to other drugs, medicaments and biological substances
CPT/HCPCS: 36415; 51702; 80053; 81001; 85025

== ENCOUNTER 2020-03-29 14:37 | Emergency (ER) | payer OTHER ==
[~2020-03-29] VITALS: Ht 185.4 cm; Wt 87.5 kg
[2020-03-29 14:46] VITALS: BP 117/75
== END 2020-03-29 17:39 | disposition home or self-care (01) ==
LOC: ER 14:37
DX: Z46.6 Encounter for fitting and adjustment of urinary device (principal); I10 Essential (primary) hypertension; J44.9 Chronic obstructive pulmonary disease, unspecified; E78.5 Hyperlipidemia, unspecified; Z90.89 Acquired absence of other organs; Z88.0 Allergy status to penicillin; Z88.8 Allergy status to other drugs, medicaments and biological substances; Z87.891 Personal history of nicotine dependence
CPT/HCPCS: 51702

== ENCOUNTER → 2020-05-12 | Emergency (ER) | payer OTHER ==
[~2020-05-12] VITALS: Ht 185.4 cm; Wt 77.1 kg
[2020-05-12 17:25] VITALS: BP 144/75
== END | disposition left against medical advice (07) ==
LOC: ER 17:19
DX: R39.89 Other symptoms and signs involving the genitourinary system (principal); Z53.21 Procedure and treatment not carried out due to patient leaving prior to being seen by health care provider

== ENCOUNTER 2020-05-14 05:22 | Emergency (ER) | payer OTHER ==
[~2020-05-14] VITALS: Ht 185.4 cm; Wt 77.6 kg
[2020-05-14 12:33] LABS: Urine Bacteria FEW /hpf (None Seen); Urine Blood 3+ /uL (Negative); Urine Budding Yeast MODERATE /hpf (None Seen); Urine Hyaline Cast FEW /lpf (0 - 2); Urine Mucus FEW (None Seen); Urine Specific Gravity 1.021 (1.001-1.035); Urine WBC 372 /hpf (0 - 3); Urine WBC Clumps PRESENT /hpf (None Seen)
[2020-05-14 14:41] VITALS: BP 103/71
== END 2020-05-14 14:42 | disposition home or self-care (01) ==
LOC: ER 05:22
DX: N39.0 Urinary tract infection, site not specified (principal); J44.9 Chronic obstructive pulmonary disease, unspecified; E78.5 Hyperlipidemia, unspecified; I10 Essential (primary) hypertension; Z87.891 Personal history of nicotine dependence; Z46.6 Encounter for fitting and adjustment of urinary device
CPT/HCPCS: 51702; 81001; 87086

== ENCOUNTER 2020-08-16 14:46 | Emergency (ER) | payer OTHER ==
[~2020-08-16] VITALS: Ht 185.4 cm; Wt 88.5 kg
[2020-08-16 15:00] VITALS: BP 90/60
== END 2020-08-16 15:35 | disposition home or self-care (01) ==
LOC: ER 14:46
DX: R31.9 Hematuria, unspecified (principal); Z53.21 Procedure and treatment not carried out due to patient leaving prior to being seen by health care provider

== ENCOUNTER 2020-08-22 18:00 | Inpatient (IN) | payer OTHER ==
[~2020-08-22] VITALS: Ht 185.4 cm; Wt 88.9 kg
[2020-08-22] MEDS ORDERED: IOHEXOL 350 MG/ML 100ML IJ ONE (19:17)
[2020-08-22 19:33] LABS: Basophils # (auto) 0 10 ^3/uL (0-0.2); Basophils % (auto) 0.4 % (0.0-2.0); Eosinophils # (auto) 0.2 10 ^3/uL (0-0.8); Eosinophils % (auto) 3.8 % (0.0-7.0); Hematocrit 36.2 % (41.0-53.0); Hemoglobin 12.1 g/dL (13.5-17.5); Lymphocytes # (auto) 1.3 10 ^3/uL (0.4-5.4); Lymphocytes % (auto) 24.4 % (10.0-50.0); Mean Corpuscular Hemoglobin 29.2 pg (28.0-32.0); Mean Corpuscular Hgb Conc. 33.5 g/dL (32.0-36.0); Monocytes # (auto) 0.6 10 ^3/uL (0-1.3); Monocytes % (auto) 10.5 % (0.0-12.0); Neutrophils # (auto) 3.3 10 ^3/uL (1.6-8.6); Neutrophils % (auto) 60.9 % (37.0-80.0); Nucleated Red Blood Cells % 0.1 %; Platelet Count (auto) 224 10^3/uL (140-450); Red Blood Cells 4.16 10^6/uL (4.5-5.90); Red Cell Distribution Width 14.5 % (11.8-14.3); White Blood Cell 5.5 10^3/uL (4.4-10.8)
[2020-08-22 19:45] LABS: Albumin 3.2 g/dL (3.4-5.0); Calcium 8.5 mg/dL (8.5-10.1); Potassium 4.3 mmol/L (3.5-5.1)
[2020-08-22 19:50] LABS: BUN/Creatinine Ratio 17.3; Bilirubin, Total 0.3 mg/dL (0.2-1.0); Total Protein 7.4 g/dL (6.4-8.2)
[2020-08-22 19:55] LABS: INR 1.03 (0.9-1.15); Partial Thromboplastin Time 29.3 sec (23.0-31.2)
[2020-08-23] MEDS ORDERED: ONDANSETRON HCL 4 MG/2 ML VIAL IV PRN (00:45)
[2020-08-23] MEDS ORDERED: NITROGLYCERIN 0.4 MG SL TAB SL PRN (00:45)
[2020-08-23] MEDS ORDERED: TEMAZEPAM 15 MG CAP PO PRN (00:45)
[2020-08-23] MEDS ORDERED: ACETAMINOPHEN 325 MG TAB PO PRN (00:45)
[2020-08-23] MEDS ORDERED: MORPHINE SULF INJ 2 MG/ML SYRINGE 1ML IV PRN (00:45)
[2020-08-23] MEDS: ENOXAPARIN SOD 100 MG/1 ML SYRINGE SC SCH ×2 (00:55→09:51)
[2020-08-23 04:58] VITALS: BP 120/64
[2020-08-23 05:00] VITALS: BP 120/64
[2020-08-23 08:00] VITALS: BP 124/67
[2020-08-23] MEDS ORDERED: amLODIPine BESYLATE 5 MG TAB PO SCH (10:00)
[2020-08-23] MEDS ORDERED: FAMOTIDINE 20 MG TAB PO SCH (10:00)
[2020-08-23] MEDS ORDERED: APIX2.5T PO (11:04)
[2020-08-23 12:00] VITALS: BP 121/67
[2020-08-23 12:08] VITALS: BP 121/67
== END 2020-08-23 13:23 | disposition home or self-care (01) | DRG 176 ==
LOC: ER 18:00 → TELE 08-23 00:44 → TELE-CENTR 08-23 04:05
PROVIDERS: ADMIT Nurse Practitioner; ATTEND Hospitalist
DX: I26.99 Other pulmonary embolism without acute cor pulmonale (principal); E44.0 Moderate protein-calorie malnutrition; Z20.822 Contact with and (suspected) exposure to COVID-19; I10 Essential (primary) hypertension; Z88.0 Allergy status to penicillin; Z88.8 Allergy status to other drugs, medicaments and biological substances; Z68.25 Body mass index [BMI] 25.0-25.9, adult; Z85.51 Personal history of malignant neoplasm of bladder; Z90.5 Acquired absence of kidney; Z83.3 Family history of diabetes mellitus; Z82.49 Family history of ischemic heart disease and other diseases of the circulatory system; Z80.8 Family history of malignant neoplasm of other organs or systems; Z79.899 Other long term (current) drug therapy; Z85.528 Personal history of other malignant neoplasm of kidney; Z79.01 Long term (current) use of anticoagulants
CPT/HCPCS: 36415; 71275; 80053; 84484; 85025; 85379; 85610; 85730; 87081; 87426; 93005; 93306; 93970; G0378

== ENCOUNTER 2020-08-28 20:52 | Emergency (ER) | payer OTHER ==
[~2020-08-28] VITALS: Ht 185.4 cm; Wt 86.2 kg
[~2020-08-28 20:52] MED LIST changes: +APIX2.5T PO; -CIPR-173 PO; -CRAN450T4 PO; -MISC450C OR; -POM
[2020-08-28 21:49] LABS: Basophils # (auto) 0 10 ^3/uL (0-0.2); Basophils % (auto) 0.6 % (0.0-2.0); Eosinophils # (auto) 0.2 10 ^3/uL (0-0.8); Eosinophils % (auto) 3.3 % (0.0-7.0); Hematocrit 32.3 % (41.0-53.0); Hemoglobin 10.9 g/dL (13.5-17.5); Lymphocytes % (auto) 13.2 % (10.0-50.0); Mean Corpuscular Hemoglobin 29.4 pg (28.0-32.0); Mean Corpuscular Hgb Conc. 33.8 g/dL (32.0-36.0); Monocytes # (auto) 0.8 10 ^3/uL (0-1.3); Monocytes % (auto) 10.7 % (0.0-12.0); Neutrophils # (auto) 5.3 10 ^3/uL (1.6-8.6); Neutrophils % (auto) 72.2 % (37.0-80.0); Nucleated Red Blood Cells % 0.1 %; Platelet Count (auto) 295 10^3/uL (140-450); Red Blood Cells 3.72 10^6/uL (4.5-5.90); Red Cell Distribution Width 14.7 % (11.8-14.3); White Blood Cell 7.3 10^3/uL (4.4-10.8)
[2020-08-28 22:05] LABS: Calcium 8.3 mg/dL (8.5-10.1); Potassium 4.7 mmol/L (3.5-5.1)
[2020-08-28 22:08] LABS: BUN/Creatinine Ratio 19.7; Bilirubin, Total 0.5 mg/dL (0.2-1.0); Total Protein 7.2 g/dL (6.4-8.2)
[2020-08-28 22:58] LABS: Urine Bacteria NONE SEEN /hpf (None Seen); Urine Blood 3+ /uL (Negative); Urine WBC 1604 /hpf (0 - 3); Urine WBC Clumps PRESENT /hpf (None Seen)
[2020-08-28 23:01] LABS: Urine Specific Gravity 1.018 (1.001-1.035)
[2020-08-28] MEDS ORDERED: cefTRIAXone 1GM/50ML D5W 50 ML IV ONE (23:30)
[2020-08-29] MEDS ORDERED: cefTRIAXone 1GM/50ML D5W 50 ML IV ONE
[2020-08-29 01:09] VITALS: BP 125/62
== END 2020-08-29 01:49 | disposition home or self-care (01) ==
LOC: ER 20:53
DX: N39.0 Urinary tract infection, site not specified (principal); R31.0 Gross hematuria; I10 Essential (primary) hypertension; Z85.528 Personal history of other malignant neoplasm of kidney; Z86.711 Personal history of pulmonary embolism; Z86.718 Personal history of other venous thrombosis and embolism; Z88.0 Allergy status to penicillin; Z88.8 Allergy status to other drugs, medicaments and biological substances; Z91.018 Allergy to other foods
CPT/HCPCS: 36415; 80053; 81001; 85025; 87086; 96365; 99284; J0696

== ENCOUNTER 2020-09-27 07:01 | Emergency (ER) | payer OTHER ==
[~2020-09-27] VITALS: Ht 182.9 cm; Wt 86.2 kg
[2020-09-27 08:10] LABS: Basophils # (auto) 0.1 10 ^3/uL (0-0.2); Basophils % (auto) 0.6 % (0.0-2.0); Eosinophils # (auto) 0.3 10 ^3/uL (0-0.8); Eosinophils % (auto) 2.6 % (0.0-7.0); Hematocrit 29.1 % (41.0-53.0); Hemoglobin 10.1 g/dL (13.5-17.5); Lymphocytes % (auto) 9.3 % (10.0-50.0); Mean Corpuscular Hemoglobin 29.7 pg (28.0-32.0); Mean Corpuscular Hgb Conc. 34.7 g/dL (32.0-36.0); Mean Corpuscular Volume 85.7 fL (80.0-100.0); Monocytes # (auto) 1.1 10 ^3/uL (0-1.3); Monocytes % (auto) 10.4 % (0.0-12.0); Neutrophils # (auto) 8.3 10 ^3/uL (1.6-8.6); Neutrophils % (auto) 77.1 % (37.0-80.0); Nucleated Red Blood Cells % 0.1 %; Platelet Count (auto) 412 10^3/uL (140-450); Red Cell Distribution Width 15.3 % (11.8-14.3); White Blood Cell 10.8 10^3/uL (4.4-10.8)
[2020-09-27 08:25] LABS: Albumin 2.7 g/dL (3.4-5.0); Calcium 8.6 mg/dL (8.5-10.1); Potassium 4.7 mmol/L (3.5-5.1)
[2020-09-27 08:32] LABS: BUN/Creatinine Ratio 17.7; Bilirubin, Total 0.4 mg/dL (0.2-1.0); Total Protein 7.2 g/dL (6.4-8.2)
[2020-09-27 08:34] LABS: INR 1.19 (0.9-1.15); Partial Thromboplastin Time 35.8 sec (23.0-31.2)
[2020-09-27] MEDS ORDERED: SULF400T11 (08:48)
[2020-09-27] MEDS ORDERED: AMLO-489 PO (08:48)
[2020-09-27] MEDS ORDERED: FAMO-12 PO (08:48)
[2020-09-27 12:37] LABS: Urine Bacteria MANY /hpf (None Seen); Urine Blood 2+ /uL (Negative); Urine Budding Yeast MODERATE /hpf (None Seen); Urine Mucus FEW (None Seen); Urine Specific Gravity 1.022 (1.001-1.035); Urine WBC 407 /hpf (0 - 3)
[2020-09-27] MEDS ORDERED: cefTRIAXone 1GM/50ML D5W 50 ML IV ONE (13:00)
[2020-09-27 17:00] VITALS: BP 133/61
== END 2020-09-27 18:13 | disposition home or self-care (01) ==
LOC: ER 07:01
DX: N39.0 Urinary tract infection, site not specified (principal); R91.8 Other nonspecific abnormal finding of lung field; J90 Pleural effusion, not elsewhere classified; N13.4 Hydroureter; R60.0 Localized edema; Z20.822 Contact with and (suspected) exposure to COVID-19
CPT/HCPCS: 36415; 71046; 71250; 80053; 81001; 83735; 83880; 84484; 85025; 85379; 85610; 85730; 87040; 87426; 93005; 93971; 96365; 99285; J0696